=== PATIENT | male | born 1980 | race Caucasian/White ===

== ENCOUNTER 2023-07-07 07:16 | Emergency (ER) | payer OTHER, SELFPAY ==
[2023-07-07 07:27] VITALS: BP 149/94; PULSE 67; RESP 16; TEMP 36.4; O2SAT 99
[2023-07-07 09:04] VITALS: BP 150/88; PULSE 70; RESP 18; O2SAT 98
--- NOTE | 2023-07-07 15:30 | ED_ITS ---
HPI - Extremity Injury (Lower) General Chief Complaint: Extremity Injury, Lower Stated Complaint: injury to left foot Time Seen by Provider: 07/07/23 07:36 History of Present Illness HPI Narrative: Patient dropped a pallet on his left foot and has been hurting since, he is able to walk on it. Happened this morning Related Data Allergies Allergy/AdvReac Type Severity Reaction Status Date / Time No Known Allergies Allergy Verified 07/07/23 07:29 Review of Systems Review of Systems: M/S: Left foot pain. SKIN: No rash. NEURO: [No focal numbness or weakness] Exam Narrative: EXAMINATION OF ORGAN SYSTEMS/BODY AREAS: Constitutional: Vital signs per nursing GENERAL:[No acute distress, non-toxic appearing.] HEAD: Normal with no signs of head trauma. EYES: EOMI, conjunctiva normal ENT: Hearing grossly intact LUNGS: Nonlabored breathing. HEART: [Regular rate and rhythm] ABD: [Soft], [nontender to palpation] EXT: Normal range of motion, no tenderness to palpation first phalanx; normal DP pulses, normal range of motion SKIN: [No rashes or lesions.] NEURO: [Alert and oriented x 3. No gross focal sensory or strength deficits.] PSYCH: Normal affect Course Vital Signs Vital signs: Vital Signs Temperature 97.6 F 07/07/23 07:27 Pulse Rate 67 07/07/23 07:27 Respiratory Rate 16 07/07/23 07:27 Blood Pressure 149/94 H 07/07/23 07:27 Pulse Oximetry 99 07/07/23 07:27 Temperature 97.6 F 07/07/23 07:27 Pulse Rate 70 07/07/23 09:04 Respiratory Rate 18 07/07/23 09:04 Blood Pressure 150/88 H 07/07/23 09:04 Pulse Oximetry 98 07/07/23 09:04 MDM - Extremity Injury (Lower) MDM Narrative Medical decision making narrative: Patient presents with left foot pain after dropping a pallet on it, on exam he is neurovascularly intact with good DP pulses, he is able to ambulate, no obvious deformity, x-ray without acute fracture, stable for discharge. Discharge Plan Discharge Clinical Impression: Crush injury of foot Patient Disposition: Home, Self-Care Condition: Stable Instructions: Antibiotic Form, Crush Injury (ED) Additional Instructions: Please follow up with the hvac instructor; use ice, ibuprofen/tylenol, and keep your foot up; come back if worse. Prescriptions: New acetaminophen [Tylenol Extra Strength] 500 mg tablet 1,000 mg PO Q6H PRN (Reason: pain) Qty: 50 0RF ibuprofen 600 mg tablet 600 mg PO TID PRN (Reason: fever or pain) Qty: 30 0RF Follow-up/Referrals: Brock Oneil JR, MD [Physician] - 2 Days PHYSICIAN,[employer] SUPER[employer]OR [Primary Care Provider] - Stand Alone Forms: Work/School Release IP
== END 2023-07-07 09:06 | disposition home or self-care (01) ==
PROVIDERS: Emergency Provider Emergency Medicine
DX: S97.82XA Crushing injury of left foot, initial encounter (principal); W20.8XXA Other cause of strike by thrown, projected or falling object, initial encounter
CPT/HCPCS: 73630; 99283